=== PATIENT | male | born 1950 | race Caucasian/White ===

== ENCOUNTER 2018-05-26 11:39 | Day surgery (SDC) | payer OTHER, MEDICAID ==
[2018-05-26] MEDS ORDERED: LR 1,000 ML IV ONE (12:30)
--- NOTE | 2018-05-26 14:06 | PDGENHP ---
History & Physical Chief Complaint: phx polyps History of Present Illness: phx polyps rmoved 5 years ago Pertinent Past, Social, Family History: htn, chol. gum disease. no tobacco. no alcohol quit 1075. FHx - colon cancer in mother Relevant Physical Exam: A+ox3. CTA. S1S2. +BS, soft nt Cardiorespiratory Assessment: class 2
--- NOTE | 2018-05-26 14:17 | PDANEPAE ---
ANE History of Present Illness here for colonoscopy ANE Past Medical History - Cardiovascular History Hx Hypertension: Yes Hx Arrhythmias: No Hx Chest Pain: No Hx Coronary Artery / Peripheral Vascular Disease: No Hx CHF / Valvular Disease: No Hx Palpitations: No - Pulmonary History Hx COPD: No Hx Asthma/Reactive Airway Disease: No Hx Recent Upper Respiratory Infection: No Hx Oxygen in Use at Home: No Hx Sleep Apnea: No Sleep Apnea Screening Result - Last Documented: Positive - Neurologic History Hx Cerebrovascular Accident: No Hx Seizures: No Hx Dementia: No - Endocrine History Hx Diabetes: No - Renal History Hx Renal Disorders: Yes Renal History Comment: CKD - Liver History Hx Hepatic Disorders: No - Neurological & Psychiatric Hx Hx Neurological and Psychiatric Disorders: Yes Neurological / Psychiatric History Comment: depression. raynuads - Cancer History Hx Cancer: No - Congenital Disorder History Hx Congenital Disorders: No Congenital History Comment: unknown - GI History Hx Gastrointestinal Disorders: Yes Gastrointestinal History Comment: diahrrea. gum disease only 4 teeth - Other Health History Other Health History: rash to ankles. bruises easily. hx falls - Chronic Pain History Chronic Pain: No - Surgical History Prior Surgeries: none in last 5 yrs. trigger finger ANE Review of Systems Review of systems is: negative Review of Systems: - Exercise capacity Exercise capacity: >=4 METS METS (RN): 4 METS ANE Patient History - Allergies Allergies/Adverse Reactions: No Known Allergies Allergy (Verified 05/11/18 12:49) - Home Medications Home medications: home medication list seen and reviewed Home Medications: Atorvastatin Calcium 05/11/18 [Last Taken Unknown] Hydroxyzine HCl 05/11/18 [Last Taken Unknown] Hyoscyamine Sulfate 05/11/18 [Last Taken Unknown] Lisinopril 05/11/18 [Last Taken Unknown] MIRTAZAPINE 05/11/18 [Last Taken Unknown] Metoprolol Tartrate 05/11/18 [Last Taken Unknown] - NPO status NPO Status: no food or drink >8 hours NPO Since - Liquids (Date): 05/26/18 NPO Since - Liquids (Time): 03:00 NPO Since - Solids (Date): 05/26/18 NPO Since - Solids (Time): 03:00 - Smoking Hx Smoking Status: Never smoked - Family Anes Hx Family Hx Anesthesia Complications: unknown ANE Labs/Vital Signs - Vital Signs Vital Signs: reviewed preoperatively; see RN documention for details Blood Pressure: 132/81 Heart Rate: 108 Respiratory Rate: 12 O2 Sat (%): 96 Height: 167.64 cm Weight: 74.843 kg ANE Physical Exam - Airway Neck exam: FROM Mallampati Score: Class 1 Mouth exam: poor dentition - Pulmonary Pulmonary: no respiratory distress - Cardiovascular Cardiovascular: regular rate and rhythym - ASA Status ASA Status: II ANE Anesthesia Plan Anesthesia Plan: GA with mask
[2018-05-26] MEDS ORDERED: PROPOFOL/EMULSION 500 MG/50 ML BOTTLE IV ONE ×2 (14:37→15:26)
[2018-05-26] MEDS ORDERED: ONDANSETRON 4 MG/2 ML VIAL IVP PRN (14:46)
[2018-05-26] MEDS ORDERED: ALBUTEROL 3 ML DEYVIAL IH PRN (14:46)
[2018-05-26] MEDS ORDERED: NALOXONE HCL 0.4 MG/ML INJ IVP PRN (14:46)
[2018-05-26] MEDS ORDERED: LR 500 ML IV PRN (14:46)
--- NOTE | 2018-05-26 15:11 | GIREPORT ---
[facility] - Endoscopy Department Patient Name: Jesus Alberto Austin Procedure Date: 05/26/2018 1:15 PM Patient Type: Outpatient Attending / ER Physician: Abdulaziz Lee MD Procedure: Colonoscopy Indications: High risk colon cancer surveillance: Personal history of non-advanced adenoma, High risk colon cancer surveillance: Personal history of adeno ma less than 10 mm in size Providers: Abdulaziz Lee MD Referring MD: LYNDA Penny Medicines: Propofol per Anesthesia = IV general with spont resps Complications: No immediate complications. Estimated blood loss: Minimal. Description of Procedure: After obtaining informed consent, the scope was passed under direct vis ion. Throughout the procedure, the patient's blood pressure, pulse, and oxyg en saturations were monitored continuously. The Colonoscope was introduced through the anus and advanced to the terminal ileum, with identificatio n of the appendiceal orifice and IC valve. The colonoscopy was performed wit hout difficulty. The patient tolerated the procedure well. The quality of th e bowel preparation was good. Findings: The digital rectal exam was normal. The terminal ileum appeared normal. Two sessile polyps were found in the proximal ascending colon. The poly ps were 2 to 4 mm in size. These polyps were removed with a piecemeal tech nique using a cold biopsy forceps. Resection and retrieval were complete. Estimated blood loss was minimal. A few diverticula were found in the ascending colon. The exam was otherwise without abnormality. Estimated Blood Loss: Estimated blood loss was minimal. Post Op Diagnosis: - The examined portion of the ileum was normal. - Two 2 to 4 mm polyps in the proximal ascending colon, removed pieceme al using a cold biopsy forceps. Resected and retrieved. - Diverticulosis in the ascending colon. - The examination was otherwise normal. Recommendation: - Await pathology results. - My office will call with the pathology result with 5-7 days. If you h ave not heard from my office by 12-14, do not assume the pathology is ramon l, please call [phone] to get the pathology results. - Repeat colonoscopy in 5 years for surveillance. - High fiber diet. - 30-35 grams of dietary fiber per day. Can use supplemental fiber. - A high fiber diet may decrease risk of complications from diverticulo sis. There is no need to avoid seeds or nuts. - Patient has a contact number available for emergencies. The signs and symptoms of potential delayed complications were discussed with the pat ient. Return to normal activities tomorrow. Written discharge instructions we re provided to the patient. - Discharge patient to home (ambulatory). - Return to primary care physician as previously scheduled. - Thank you for allowing me to help in your patient's care. Do not hesi vu to call with any questions. Attending Participation: I personally performed the entire procedure. Rosa Osorio M.D Abdulaziz Lee MD 05/26/2018 3:11:20 PM This report has been signed electronicallyMatthew MD Rosa Number of Addenda: 0 Note Initiated On: 05/26/2018 1:15 PM Total Procedure Duration Time 0 hours 22 minutes 8 seconds [email or web address]
[2018-05-26 18:26] VITALS: BP 127/98
== END 2018-05-26 18:38 | disposition home or self-care (01) ==
LOC: FSGY 11:39
PROVIDERS: ATTEND Internal Medicine Gastroenterology
PROC: 0DBK8ZX Excision of Ascending Colon, Via Natural or Artificial Opening Endoscopic, Diagnostic (ICD-10-PCS; principal; 2018-05-26 13:45)
DX: Z12.11 Encounter for screening for malignant neoplasm of colon (principal); D12.2 Benign neoplasm of ascending colon; K57.30 Diverticulosis of large intestine without perforation or abscess without bleeding; I12.9 Hypertensive chronic kidney disease with stage 1 through stage 4 chronic kidney disease, or unspecified chronic kidney disease; E78.5 Hyperlipidemia, unspecified; N18.9 Chronic kidney disease, unspecified; F32.9 Major depressive disorder, single episode, unspecified; I73.00 Raynaud's syndrome without gangrene; Z86.010 Personal history of colon polyps
CPT/HCPCS: J2704